=== PATIENT | female | born 1955 | race Caucasian/White ===

== ENCOUNTER 2021-09-19 14:52 | Inpatient (IN) ==
[2021-09-19] MEDS ORDERED: Lactated Ringers 1000 ml BAG 1,000 ML IV ONE (14:57)
[2021-09-19] MEDS ORDERED: Gentamicin ADULT 100 MG in NS 0.9% 100 ml BAG 100 ML IVPB ONE (14:58)
[2021-09-19] MEDS ORDERED: NS 0.9% 100 ml BAG 100 ML ONE (15:17)
[2021-09-19] MEDS ORDERED: GENTAMICIN ADULT IVPB ONE (15:22)
[2021-09-19] MEDS ORDERED: NS 0.9% IVPB ONE (15:22)
[2021-09-19] MEDS ORDERED: Dexamethasone IV 4 MG/ML VIAL 1 ml VIAL ONE (15:44)
[2021-09-19] MEDS ORDERED: Ondansetron 4 mg VIAL 2 MG/ML 2 ml VIAL ONE (15:44)
[2021-09-19] MEDS ORDERED: Propofol 10 MG/ML 20 ML BTL ONE (15:44)
[2021-09-19] MEDS ORDERED: fentaNYL 100 mcg/2 ml 50 MCG/ML VIAL ONE (15:44)
[2021-09-19] MEDS ORDERED: Lidocaine 2% PF 5 ML VIAL ONE (15:44)
[2021-09-19 15:45] LABS: Hematocrit 37 % (35-47); Hemoglobin 12.4 g/dL (12.0-16.0); Mean Corpuscular HGB Conc 33 g/dL (31-36); Mean Corpuscular Hemoglobin 31 pg (27-31); Mean Corpuscular Volume 93 fL (80-97); Mean Platelet Volume 7.8 fL (7.4-10.4); Platelet Count 161 10^3/uL (150-450); Red Blood Count 3.96 10^6 /uL (3.70-4.87); Red Cell Distribution Width 13 % (10-15); White Blood Count 17.7 10^3/uL (3.5-10.8)
[2021-09-19] MEDS ORDERED: Midazolam 2 mg/2 ml VIAL 1 mg/ml 2 ml VIAL (2 mg) ONE (15:45)
[2021-09-19 15:55] LABS: Albumin 3.9 g/dL (3.2-5.2); Calcium 8.8 mg/dL (8.6-10.3); Potassium 4.3 mmol/L (3.5-5.0); Total Bilirubin 0.6 mg/dL (0.2-1.0)
[2021-09-19] MEDS ORDERED: Famotidine IV 10 MG/ML 2 ml VIAL (20 mg) IV ONE (15:59)
[2021-09-19 16:01] LABS: Albumin/Globulin Ratio 1.3 (1-3); Globulin 2.9 g/dL (2-4); Total Protein 6.8 g/dL (6.4-8.9); eGFR CKD-EPI 48.6 (>60)
[2021-09-19 16:28] LABS: ABS Lymphocytes 0.4 10^3/ul (1.0-4.8); ABS Monocytes 0.9 10^3/ul (0-0.8); ABS Neutrophils 16.3 10^3/ul (1.5-7.7); Eosinophil % 0.1 %; Lymphocyte % 2.2 %
[2021-09-19] MEDS ORDERED: Iohexol 180 (CONTRAST) 20 ML SDV IV ONE (16:36)
[2021-09-19] MEDS ORDERED: Famotidine IV 10 MG/ML 2 ml VIAL (20 mg) ONE (16:48)
[2021-09-19] MEDS ORDERED: cefTRIAXone 2 GM ADDV.VIAL ONE (17:19)
[2021-09-19] MEDS ORDERED: Al Hydrox/Mg Hydrox/Simet LIQ 30 ML UDC PO PRN (19:16)
[2021-09-19] MEDS ORDERED: Ondansetron 4 mg VIAL 2 MG/ML 2 ml VIAL IV PRN (19:16)
[2021-09-19] MEDS ORDERED: Dextrose 50% Syringe 50 ml 25 GM/50 ML SYRINGE IV PUSH PRN (19:20)
[2021-09-19] MEDS ORDERED: cefTRIAXone 1 gm/50 mL NS BAG 1 GM/50 ML BAG IVPB SCH (20:00)
[2021-09-19] MEDS: Lactated Ringers 1000 ml BAG 1,000 ML IV SCH (23:31)
[2021-09-20 05:29] LABS: ABS Lymphocytes 0.2 10^3/ul (1.0-4.8); ABS Monocytes 0.3 10^3/ul (0-0.8); Hematocrit 38 % (35-47); Hemoglobin 12.6 g/dL (12.0-16.0); Lymphocyte % 1.9 %; Mean Corpuscular HGB Conc 34 g/dL (31-36); Mean Corpuscular Hemoglobin 31 pg (27-31); Mean Corpuscular Volume 94 fL (80-97); Mean Platelet Volume 7.7 fL (7.4-10.4); Platelet Count 141 10^3/uL (150-450); Red Blood Count 4.02 10^6 /uL (3.70-4.87); Red Cell Distribution Width 13 % (10-15); White Blood Count 11.5 10^3/uL (3.5-10.8)
[2021-09-20 05:44] LABS: Potassium 4.3 mmol/L (3.5-5.0); eGFR CKD-EPI 58.2 (>60)
[2021-09-20] MEDS: Lactated Ringers 1000 ml BAG 1,000 ML IV SCH (08:55)
[2021-09-20] MEDS: Enoxaparin 30 MG/0.3 ML SYR SUBCUT SCH (12:07)
[2021-09-20] MEDS: cefTRIAXone 1 gm/50 mL NS BAG 1 GM/50 ML BAG IVPB SCH ×2 (12:08→22:27)
[2021-09-20] MEDS ORDERED: cefTRIAXone 1 gm/50 mL NS BAG 1 GM/50 ML BAG IVPB SCH (21:00)
[2021-09-21 08:05] LABS: ABS Lymphocytes 0.5 10^3/ul (1.0-4.8); ABS Monocytes 0.4 10^3/ul (0-0.8); ABS Neutrophils 5.1 10^3/ul (1.5-7.7); Eosinophil % 0.4 %; Hematocrit 34 % (35-47); Hemoglobin 11.8 g/dL (12.0-16.0); Lymphocyte % 8.1 %; Mean Corpuscular HGB Conc 34 g/dL (31-36); Mean Corpuscular Hemoglobin 32 pg (27-31); Mean Corpuscular Volume 93 fL (80-97); Mean Platelet Volume 7.9 fL (7.4-10.4); Platelet Count 132 10^3/uL (150-450); Red Cell Distribution Width 13 % (10-15)
[2021-09-21 08:23] LABS: Anion Gap 6 mmol/L (2-11); Blood Urea Nitrogen 14 mg/dL (6-24); CO2 Carbon Dioxide 25 mmol/L (22-32); Calcium 9.2 mg/dL (8.6-10.3); Chloride 102 mmol/L (101-111); Glucose 145 mg/dL (70-100); Potassium 3.8 mmol/L (3.5-5.0); Sodium 133 mmol/L (135-145)
[2021-09-21 08:26] LABS: CRP High Sensitivity > 80.00 mg/L (<2.00)
[2021-09-21] MEDS: Enoxaparin 30 MG/0.3 ML SYR SUBCUT SCH (11:45)
[2021-09-21 13:21] LABS: C Reactive Protein 228.92 mg/L (<8.01)
[2021-09-21 13:22] LABS: C Reactive Protein 162.24 mg/L (<8.01)
[2021-09-21] MEDS ORDERED: Iodixanol (CONTRAST) 320 MG/ML 100 ML SDV IV ONE (14:49)
[2021-09-21 15:51] VITALS: BP 131/65
== END 2021-09-21 18:03 | disposition home or self-care (01) | DRG 660 ==
LOC: SSU 14:52 → ED 14:52 → SUATTDRO 19:16
PROVIDERS: ADMIT Urology; ATTEND Hospitalist

== ENCOUNTER 2024-05-09 07:31 | Observation (INO) ==
[~2024-05-09 07:31] MED LIST: ROPIVACAINE 5 MG/ML 30 ML BTL (0.5%) ONE
[2024-05-09] MEDS ORDERED: Lidocaine 2% PF 5 ML VIAL ONE (08:06)
[2024-05-09] MEDS ORDERED: Propofol 10 MG/ML 20 ML BTL ONE (08:06)
[2024-05-09] MEDS ORDERED: Midazolam 2 mg/2 ml VIAL 1 mg/ml 2 ml VIAL (2 mg) ONE (08:06)
[2024-05-09] MEDS ORDERED: fentaNYL 100 mcg/2 ml 50 MCG/ML VIAL ONE ×2 (08:06→13:10)
[2024-05-09] MEDS ORDERED: Phenylephrine IV 10 MG/ML 1 ml VIAL ONE (08:06)
[2024-05-09] MEDS ORDERED: Propofol 0 MG/0 ML BTL ONE (08:06)
[2024-05-09] MEDS ORDERED: ceFAZolin *3* GM in NS PREMIX 3 GM/100 ML BAG IV ONE (08:19)
[2024-05-09] MEDS ORDERED: Famotidine IV 10 MG/ML 2 ml VIAL (20 mg) ONE (08:19)
[2024-05-09] MEDS ORDERED: Dexamethasone IV 4 MG/ML VIAL 1 ml VIAL ONE ×2 (08:19→10:17)
[2024-05-09] MEDS ORDERED: Tranexamic Acid 1 GM/100ML BAG 2,000 MG/200 ML BAG IV ONE (08:19)
[2024-05-09 08:20] LABS: Activated Partial Thrombo Time 34.9 seconds (26.0-38.0); INR 0.96 (0.83-1.13)
[2024-05-09] MEDS: Famotidine IV 10 MG/ML 2 ml VIAL (20 mg) IV ONE (08:27)
[2024-05-09] MEDS: Buffered Lidocaine 1% SYRIN 1 ml INTRADERM ONE (08:27)
[2024-05-09] MEDS: Dexamethasone IV 4 MG/ML VIAL 1 ml VIAL IV SLOW PU ONE (08:27)
[2024-05-09 08:28] LABS: Rapid COVID-19 Molecular Undetected (Undetected)
[2024-05-09] MEDS: Lactated Ringers 1000 ml BAG 1,000 ML IV SCH ×2 (08:28→15:52)
[2024-05-09] MEDS ORDERED: ROPIVACAINE 5 MG/ML 30 ML BTL (0.5%) ONE (09:07)
[2024-05-09] MEDS ORDERED: Lactulose 30 ml UDC PO PRN (09:49)
[2024-05-09] MEDS ORDERED: Morphine 2 MG/ML SYRINGE IV PRN (09:49)
[2024-05-09] MEDS ORDERED: Magnesium Hydroxide LIQ 30 ML UDC PO PRN (09:49)
[2024-05-09] MEDS ORDERED: Ondansetron ODT 4 mg TAB 4 MG TAB PO PRN (09:49)
[2024-05-09] MEDS ORDERED: Calcium Carb (TUMS) 500 mg CHEW TAB PO PRN (09:49)
[2024-05-09] MEDS ORDERED: Rocuronium 50 mg VIAL 10 mg/ml 5 ml VIAL (50 mg) ONE (09:52)
[2024-05-09] MEDS ORDERED: ceFAZolin 2 GM in NS PREMIX 2 GM/100 ML BAG IVPB SCH (10:00)
[2024-05-09] MEDS ORDERED: Ondansetron 4 mg VIAL 2 MG/ML 2 ml VIAL ONE (10:17)
[2024-05-09] MEDS ORDERED: HYDROmorphone 0.5 MG/0.5 ML SYRINGE ONE ×3 (10:17→11:03)
[2024-05-09] MEDS ORDERED: Naloxone 0.4 mg VIAL 0.4 mg/ml 1 ml VIAL IV PRN (13:24)
[2024-05-09] MEDS ORDERED: Morphine 4 MG/ML VIAL (1 ml) IV PRN (13:24)
[2024-05-09] MEDS: fentaNYL 100 mcg/2 ml 50 MCG/ML VIAL IV PRN (13:30)
[2024-05-09] MEDS: Ondansetron 4 mg VIAL 2 MG/ML 2 ml VIAL IV PRN (15:10)
[2024-05-09] MEDS: Ondansetron 4 mg VIAL 2 MG/ML 2 ml VIAL ONE (15:47)
[2024-05-09 17:16] VITALS: BP 150/69
[2024-05-09] MEDS: ceFAZolin 2 GM PREMIX 2 GM/50 ML BAG IV SCH (17:56)
[2024-05-09] MEDS ORDERED: Magnesium Hydroxide LIQ 30 ML UDC PO SCH (21:00)
[2024-05-10] MEDS ORDERED: Vitamin THERAPEUTIC TAB PO SCH (09:00)
== END 2024-05-09 19:00 | disposition home or self-care (01) ==
LOC: OR 07:31 → SSU 07:31 → EDSTATUS 10:00
PROVIDERS: ADMIT Orthopaedic Surgery Adult Reconstructive Orthopaedic Surgery; ATTEND Orthopaedic Surgery Adult Reconstructive Orthopaedic Surgery